=== PATIENT | female | born 1945 | race Caucasian/White ===

== ENCOUNTER 2024-10-12 13:39 | Outpatient (CLI) | payer MEDICARE, OTHER | END 2024-10-12 23:59 | disposition home or self-care (01) | LOC: MRI02 13:39 | PROVIDERS: ATTEND Neuromusculoskeletal Medicine & OMM | DX: I67.82 Cerebral ischemia (principal); R41.3 Other amnesia; G31.9 Degenerative disease of nervous system, unspecified | CPT/HCPCS: 70551 ==

== ENCOUNTER 2025-01-18 11:20 | Emergency (ER) | payer MEDICARE, OTHER ==
[~2025-01-18] VITALS: Ht 160 cm; Wt 74.5 kg
--- NOTE | 2025-01-18 11:53 | Physician Documentation ---
History of Present Illness ~ Chief Complaint: Constipation Stated Complaint: CONSTIPATION Time Seen by MD: 11:35 OK to notify your PCP?: Yes Source: patient Mode of Arrival: POV Exam Limitations: no limitations HPI 79 y/o female with c/o constipation. Patient states she has struggled with constipation for years and that it waxes and wanes in severity. She does not know the name of the medication that she is currently taking for constipation but states that she is taking a white powder that she mixes with water into red pills. She has not tried any suppositories. She did try to digitally disimpact herself and was able to get some stool out but states she still feels miserable. No nausea, vomiting, blood in stool, urinary symptoms. Medication Reconciliation Allergies: Coded Allergies: yellow dye (Unverified Adverse Reaction, Unknown, i get really crazy, 01/18/25) Scheduled Lactulose (Lactulose), 15 ML PO BID Past Medical History Past Medical History: No Pertinent History Past Surgical History: noncontributory Alcohol Use: None Drug Use: none Lives In: Home Review of Systems All Other Systems at this time: Reviewed and Negative Physical Exam Vital Signs: Temperature: 98.0, Source: Temporal, Heart Rate: 109, Respiratory Rate: 16, BP: 161/108, Pulse Oximetry: 96, Weight: 74.500 Oxygen Flow Rate: 0 Physical Exam General Appearance: Alert, WD/WN. NAD. HEENT: NCAT, PERRL, EOMI. Neck: Supple, trachea midline. Cardiovascular: RRR. No m/r/g. Lungs: CTAB. Breathing unlabored Abdomen: Soft, ND, mild ttp in mid to lower abdomen, no guarding or rebound. Extremities: Normal inspection. No edema. Skin: Warm/dry, normal color Neurological: Alert and oriented x4, normal gait. Psychiatric: Affect congruent with mood. Progress Progress Note Patient had a small bowel movement after suppository administered. Results/Orders Reviewed/noted all lab results: Yes Results/Orders Completed Orders - MARINO SANCHEZ Bisacodyl Suppository (Dulcolax Supposit (01/18/25 11:39) Medications Received in ER Medications (Trade) Dose Ordered Sig/Mariano Route PRN Reason Start Time Stop Time Status Last Admin Dose Admin (Dulcolax suppository) 10 mg ONCE STAT RC 01/18/25 11:39 01/18/25 11:42 DC 01/18/25 11:58 10 MG Vital Signs 01/18/25 11:22 Temp 98.0 Pulse 109 Resp 16 B/P (MAP) 161/108 Pulse Ox 96 O2 Flow Rate 0 Medical Decision Making Diff Dx Pain:Considerations: Include: AAA, -Complete, - Incomplete, -Inevitable, -Missed, -Threatened, Abruptio placentae, Angina/PR, Aortic dissection, Appendicitis, Bowel obstruction, Chola ngitis, Cholecystitis, Cholelithasis, Constipation, Diverticular disease, Dysmenorrhea, Ectopic , Esophageal rupture, Esophagitis, Gastritis/PUD, Gastroenteritis, GI hemorrhage, Hernia, Hepatitis, Inflammatory BD, Ischemic bowel, Mass, Ovarian cyst/torsion, Pancreatitis, PID, Porphyria, Trauma, intraabdominal, Urinary obstruction, Urinary tract infection, Urolithiasis Additional Comments NO SIGNS OF BOWEL OBSTRUCTION NO VOMITING AND STOOL IS MOVING THROUGH. PATIENT HAS NO PERITONEAL SIGNS, NO GUARDING OR REBOUND ON EXAM. PATIENT'S VITAL SIGNS ARE WITHIN RANGE. THERE WAS NO INDICATION FOR IMAGING STUDIES. Departure Time of Disposition: 11:55 Disposition: 01 HOME / SELF CARE / HOMELESS Impression: Primary Impression: Constipation Qualified Codes: K59.00 - Constipation, unspecified Condition: Stable Discharge Instructions: Constipation, Adult Additional Instructions: I DO NOT KNOW WHAT YOU ARE CURRENTLY SINCE YOU WHERE UNABLE TO REPORT THE NAME OF THE MEDICATION BUT YOU DID SAY IT IS OVER THE COUNTER I AM PRESCRIBING YOU A PRESCRIPTION FOR CONSTIPATION WHICH YOU WILL TAKE IN PLACE OF THE OVER THE COUNTER MEDICATION IF VOMITING, ABDOMINAL PAIN OR ANY OTHER CONCERNING SYMPTOMS RETURN TO ER Referrals: NO PRIMARY CARE PROVIDER (PCP) Prescriptions Lactulose (Lactulose) 10 Gram/15 Ml Solution 15 ML PO BID for constipation, #500 ML 0 Refills Prov: MARINO SANCHEZ 01/18/25 Education Educated: Patient Educated regarding: diagnosis, treatment, need for follow up Signature Scribe Signature: Toby Attestation: MARINO ECHEVARRIA Jan 18, 2025 11:53
[2025-01-18] MEDS ORDERED: LACT10SO78 PO (11:55)
[2025-01-18] MEDS: bisacodyl 10mg suppository rectal RC STA (11:58)
[2025-01-18 13:08] VITALS: BP 155/82; PULSE 97; RESP 16; TEMP 98; O2SAT 99
== END 2025-01-18 12:52 | disposition home or self-care (01) ==
LOC: ER 11:21
DX: K59.00 Constipation, unspecified (principal); Z91.041 Radiographic dye allergy status
CPT/HCPCS: 99283